=== PATIENT | female | born 1960 | race Caucasian/White ===

== ENCOUNTER → 2021-05-27 | Outpatient (CLI) | payer OTHER ==
[~2021-05-27] MED LIST: ALBU90OI INH; ALBU90OI6 INH; AMIT10 PO; AMOCLA500 PO; AMOX500 PO; AMPDEX10 PO; AZIT250 PO; BENZ100A PO; BUSP5 PO; CARI350; CARI350 PO; CRUTCH3 USE; CYCL10; DIAZ2 PO; DIAZ5 PO; ELET40TA PO; FLUT.05NI; GUAI600T33 PO; HYDACE10B; HYDACE10B PO; HYDACE5; HYDACE5 PO; HYDACE5325 PO; IBUP800 PO; LAMO100 PO; LEVSOD100 PO; LISI5 PO; MAGCIT300 PO; NAPR500 PO; NITR.4SL SL; OXYACE10 PO; PALI3TAB PO; PRED5 PO; PREG25 PO; PROACE100 PO; PROC5 PO; PROZA; Percocet 5-3251 EACH PO; RXHYD5325 PO; RXNAPNA550 PO; SERT50 PO; SULTRIDS PO; TRAM50 PO
[2021-05-29 15:11] LABS: HPV 16 Negative (Negative); HPV 18 Negative (Negative); HPV OTHER HR TYPES Negative (Negative)
== END | disposition home or self-care (01) ==
LOC: LAB SHORT 14:40
PROVIDERS: Family Medicine
DX: Z01.419 Encounter for gynecological examination (general) (routine) without abnormal findings (principal)
CPT/HCPCS: 87624; G0123

== ENCOUNTER → 2021-05-27 | Outpatient (CLI) | payer OTHER ==
[2021-05-29 05:10] LABS: BASO (ABSOLUTE) 0.1 x10E3/uL (0.0-0.2); BASOS 1 % (Not Estab.); EOS 3 % (Not Estab.); EOS (ABSOLUTE) 0.2 x10E3/uL (0.0-0.4); HEMATOCRIT 41.2 % (34.0-46.6); IMMATURE GRANULOCYTES 0 % (Not Estab.); LYMPHS 29 % (Not Estab.); LYMPHS (ABSOLUTE) 1.8 x10E3/uL (0.7-3.1); MCH 30.2 pg (26.6-33.0); MCV 89 fL (79-97); MONOCYTES 8 % (Not Estab.); MONOCYTES(ABSOLUTE) 0.5 x10E3/uL (0.1-0.9); NEUTROPHILS 59 % (Not Estab.); NEUTROPHILS (ABSOLUTE) 3.8 x10E3/uL (1.4-7.0); PLATELETS 299 x10E3/uL (150-450); RBC 4.64 x10E6/uL (3.77-5.28); RDW 11.9 % (11.7-15.4); WBC 6.3 x10E3/uL (3.4-10.8)
== END | disposition home or self-care (01) ==
LOC: LAB SHORT 18:18
PROVIDERS: Family Medicine
DX: Z00.00 Encounter for general adult medical examination without abnormal findings (principal)
CPT/HCPCS: 85025

== ENCOUNTER → 2024-12-05 | Outpatient (CLI) | payer OTHER ==
[~2024-12-05] MED LIST changes: +AMITRIPTYLINE100 M1; +AMPDEX10CR; +FLONASE ALLERG9.9 ML; +OLAN5; +TOPI100; +TROKENDI XR200 MG
[2024-12-05 11:20] LABS: BASOPHILS ABSOLUTE AUTO 0.05 K/mm3 (0.00-0.23); BASOPHILS PERCENT AUTO 1 % (0-2); EOSINOPHILS ABSOLUTE AUTO 0.28 K/mm3 (0.00-0.68); EOSINOPHILS PERCENT AUTO 6 % (0-6); Hematocrit 40.5 % (33.0-51.0); Hemoglobin 13.6 g/dL (11.5-16.0); IMMATURE GRAN ABSOLUTE AUTO 0.01 K/mm3 (0.00-0.10); IMMATURE GRAN PERCENT AUTO 0 % (0-1); LYMPHOCYTES ABSOLUTE AUTO 1.87 K/mm3 (0.84-5.20); LYMPHOCYTES PERCENT AUTO 40 % (21-46); MONOCYTES ABSOLUTE AUTO 0.49 K/mm3 (0.16-1.47); MONOCYTES PERCENT AUTO 10 % (4-13); Mean Corpuscular HGB Conc 33.6 g/dL (31.5-36.5); Mean Corpuscular Volume 93 fL (80-100); NEUTROPHILS ABSOLUTE AUTO 2.04 K/mm3 (1.96-9.15); NEUTROPHILS PERCENT AUTO 43 % (41-73); NRBC ABSOLUTE 0.00 K/mm3 (0.00-0.02); NRBC Auto 0.0 /100 WBC (0.0-0.2); Platelet Count 226 K/mm3 (150-400); RDW Coefficient Variation 13.1 % (11.7-14.2); RDW Standard Deviation 44.1 fL (35.1-46.3)
[2024-12-05 14:58] LABS: Alanine Aminotransfer (ALT/SGP 30 U/L (12-78); Albumin, Blood 4.3 g/dL (3.4-5.0); Albumin/Globulin Ratio 1.2 (0.8-1.8); Anion Gap 7 mmol/L (3-11); Aspartate Aminotrans (AST/SGOT 25 U/L (12-37); Bilirubin, Total 0.4 mg/dL (0.1-1.0); Blood Urea Nitrogen 16 mg/dL (8-24); CHOL/HDL RATIO 1.8; CO2, Blood 24 mmol/L (21-32); Calcium, Blood 9.6 mg/dL (8.5-10.1); Chloride, Blood 111 mmol/L (98-108); Cholesterol 152 mg/dL (50-200); Creatinine, Blood 0.69 mg/dL (0.40-1.00); Globulin, Blood 3.5 g/dL (2.2-4.0); Glucose, Blood 95 mg/dL (70-99); HDL Cholesterol 86 mg/dL (>39); LDL/HDL RATIO 0.6; Low Density Lipoprotein Chol 49 mg/dL (0-110); Potassium, Blood 3.9 mmol/L (3.5-5.5); Sodium, Blood 138 mmol/L (136-145); Thyroid Stimulating Hormone 33.800 uIU/mL (0.360-4.800); Total Protein, Blood 7.8 g/dL (6.4-8.2); Triglycerides 87 mg/dL (30-160); Very Low Density Lipoprot Chol 17 mg/dL (6-32)
== END | disposition home or self-care (01) ==
LOC: LAB SHORT 08:52 → LAB 08:52
PROVIDERS: Family Medicine
DX: G43.909 Migraine, unspecified, not intractable, without status migrainosus (principal); R22.0 Localized swelling, mass and lump, head; M89.9 Disorder of bone, unspecified
CPT/HCPCS: 36415; 80053; 80061; 84443; 85025; 85651

== ENCOUNTER 2025-03-02 08:19 | Day surgery (SDC) | payer OTHER ==
[~2025-03-02] VITALS: Ht 165.1 cm; Wt 64.5 kg
[2025-03-02] MEDS ORDERED: Tranexamic Acid 100 ML IV ONE ×2 (08:22→12:58)
[2025-03-02] MEDS ORDERED: CeFAZolin Sodium 2,000 MG VIAL ONE (08:28)
[2025-03-02] MEDS ORDERED: Midazolam HCl 1MG / ML 2ML Vial ONE (08:49)
[2025-03-02] MEDS ORDERED: Dexamethasone Sod Phos 10 MG/ML 1ML VIAL ONE (08:49)
[2025-03-02] MEDS ORDERED: Bupivacaine 0.5% HCl 5 MG/ML 30MLVIAL ONE (08:49)
[2025-03-02] MEDS ORDERED: ASPI81CH (08:59)
[2025-03-02] MEDS ORDERED: Methocarbamol750 MG (09:00)
[2025-03-02] MEDS ORDERED: MIRALAX11914 (09:00)
[2025-03-02] MEDS ORDERED: OLANZAPINE ODT512 (09:01)
[2025-03-02] MEDS ORDERED: AMPDEX10 (09:01)
[2025-03-02] MEDS ORDERED: Dexmedetomidine HCL 200 MCG / 2 ML ONE (09:26)
--- NOTE | 2025-03-02 09:43 | NUR ---
03/02/25 0943 KALEY HIGUERA IV INSERTED IN INTO LEFT LOWER LEG
[2025-03-02] MEDS ORDERED: Rocuronium Bromide 10 MG/ML 5ML Injection IV ONE (09:57)
[2025-03-02] MEDS ORDERED: Phenylephrine HCl 100 MCG/ML-NS 10MLSYR (1MG/10ML) ONE (10:12)
--- NOTE | 2025-03-02 10:34 | NUR ---
03/02/25 1034 Stella Coulter FIRST DOSE OF TXA GIVEN IN OR BY ANESTHESIA AT 1010
[2025-03-02] MEDS ORDERED: Sugammadex Sodium 200 MG/2ML SDV (100 MG/ML) ONE (11:14)
[2025-03-02] MEDS ORDERED: Ondansetron HCl 2 MG / ML 2ML Vial ONE (11:14)
[2025-03-02] MEDS ORDERED: FentaNYL Citrate 50 MCG/ML 2 ML Injection ONE (11:25)
--- NOTE | 2025-03-02 12:01 | NUR ---
03/02/25 1201 ROSIE MEDEROS DESAT TO 89% ON RA. PLACED ON 2L NC, NOW SATS 94%
--- NOTE | 2025-03-02 12:24 | NUR ---
03/02/25 1224 ROSIE MEDEROS ASSISTED PT TO PLACE DENTURES IN
[2025-03-02 12:53] VITALS: BP 100/61
== END 2025-03-02 14:09 | disposition home or self-care (01) ==
LOC: ORSCSDS 08:19
PROVIDERS: Orthopaedic Surgery
PROC: 0RRJ00Z Replacement of Right Shoulder Joint with Reverse Ball and Socket Synthetic Substitute, Open Approach (ICD-10-PCS; principal; 2025-03-02 10:00)
DX: M19.011 Primary osteoarthritis, right shoulder (principal); I10 Essential (primary) hypertension; J45.909 Unspecified asthma, uncomplicated; E03.9 Hypothyroidism, unspecified; F31.9 Bipolar disorder, unspecified; F90.9 Attention-deficit hyperactivity disorder, unspecified type; Z87.891 Personal history of nicotine dependence; Z79.899 Other long term (current) drug therapy
CPT/HCPCS: 73030; A9270; C1713; C1776; J0690; J1100; J2250; J2371; J2405; J2704; J3010; J7120